=== PATIENT | male | born 1955 | race Caucasian/White ===

== ENCOUNTER → 2016-09-21 | Outpatient (CLI) | payer OTHER ==
[2016-09-21 17:40] LABS: BLOOD UREA NITROGEN 17 mg/dl (7-18); BUN/CREATININE RATIO 13.3 (10-20); CALCIUM 8.2 mg/dl (8.5-10.1); CARBON DIOXIDE 23 mmol/L (21-32); CHLORIDE 108 mmol/L (98-107); GLUCOSE 93 mg/dl (70-99); POTASSIUM 3.7 mmol/L (3.5-5.1); SODIUM 140 mmol/L (136-145)
== END | disposition home or self-care (01) ==
LOC: C.LABPVFM 15:04
PROVIDERS: ATTEND Nurse Practitioner
DX: F07.81 Postconcussional syndrome (principal); I10 Essential (primary) hypertension; F41.9 Anxiety disorder, unspecified

== ENCOUNTER → 2016-12-04 | Outpatient (CLI) | payer OTHER | END | disposition home or self-care (01) | LOC: C.LABPVFM 12:10 | PROVIDERS: ATTEND Nurse Practitioner | DX: E83.51 Hypocalcemia (principal) ==

== ENCOUNTER → 2016-12-07 | Outpatient (CLI) | payer OTHER ==
--- NOTE | 2016-12-07 12:36 | DIAGNOSTIC IMAGING REPORT ---
TWO VIEW CHEST CLINICAL HISTORY: Cough. Influenza. FINDINGS: PA and lateral chest radiographs are compared to study dated 08/20/2012. The cardiomediastinal silhouette is unremarkable. The lungs and pleural spaces are clear. There is no pneumothorax. The bony thorax appears intact. Degenerative change is noted throughout the thoracic spine. IMPRESSION: No active disease in the chest. Electronically signed by: Saleem Rodriguez M.D. 12/07/2016 12:35 PM Dictated Date/Time: 12/07/2016 12:34 PM
== END | disposition home or self-care (01) ==
LOC: C.RAD1850 12:04
PROVIDERS: ATTEND Nurse Practitioner Family
DX: J11.1 Influenza due to unidentified influenza virus with other respiratory manifestations (principal); R05 Cough

== ENCOUNTER → 2017-01-03 | Outpatient (CLI) | payer OTHER ==
--- NOTE | 2017-01-03 07:34 | DIAGNOSTIC IMAGING REPORT ---
ULTRASOUND OF THE THYROID GLAND CLINICAL HISTORY: Thyroid nodule. COMPARISON STUDY: Thyroid ultrasound dated 12/08/2015. TECHNIQUE: Real-time, grayscale, and color flow sonography of the thyroid gland is performed utilizing a high-frequency linear transducer. Images are reviewed in the transverse and longitudinal planes. FINDINGS: Right lobe: The right lobe of the thyroid gland is normal in size and homogeneous in echotexture, measuring 5.2 x 1.3 x 1.5 cm. A 4 mm hypoechoic nodule in the lower pole is unchanged. Left lobe: The left lobe of the thyroid gland is normal in size and homogeneous in echotexture, measuring 4.8 x 1.3 x 2.0 cm. Isthmus: The thyroid isthmus is normal in appearance and measures 0.35 cm in AP diameter. A 6 mm colloid cyst is incidentally noted in the left isthmus. This is unchanged. IMPRESSION: 1. The thyroid gland is normal in size and echotexture. 2. A subcentimeter thyroid nodule and a colloid cyst are unchanged. Electronically signed by: Saleem Rodriguez M.D. 01/03/2017 7:32 AM Dictated Date/Time: 01/03/2017 7:30 AM
== END | disposition home or self-care (01) ==
LOC: C.ULTR 06:15
PROVIDERS: ATTEND Nurse Practitioner
DX: E04.1 Nontoxic single thyroid nodule (principal)

== ENCOUNTER 2017-10-26 18:45 | Emergency (ER) | payer OTHER ==
[~2017-10-26] VITALS: Ht 180.3 cm; Wt 105.6 kg
[2017-10-26 18:50] VITALS: TEMP 37.1; Ht 180.3 cm; Wt 105.6 kg
[2017-10-26] MEDS ORDERED: LIDO/EPINEPHRINE/SOD BICARB 20 ML VIAL INFIL ONE (19:30)
[2017-10-26] MEDS ORDERED: AMOXICILLIN/CLAVULANATE TAB 875 MG TAB PO ONE (19:30)
[2017-10-26] MEDS ORDERED: AMOX875T PO (19:38)
--- NOTE | 2017-10-26 19:41 | DIAGNOSTIC IMAGING REPORT ---
L FOREARM 2 VIEWS ROUTINE CLINICAL HISTORY: 62 years-old Male presenting with LEFT, DOG BITE. TECHNIQUE: Frontal and lateral views of the left forearm were obtained. COMPARISON: None. FINDINGS: Minimal irregularity of the subcutaneous tissue suggested over the radial mid forearm. No acute fracture or malalignment. No osseous erosion or periostitis. Elbow joint and radiocarpal joints intact. Proximal and distal radial ulnar joints intact. Ossicle at the insertion of the triceps tendon suggests chronic degenerative change. Similarly calcification or ossification at the origin of the common flexor tendon at the elbow suggests chronic degenerative change. IMPRESSION: 1. No acute osseous injury. 2. Degenerative changes as above. Electronically signed by: Hany Ruiz M.D. 10/26/2017 7:40 PM Dictated Date/Time: 10/26/2017 7:38 PM
--- NOTE | 2017-10-26 20:11 | EMERGENCY ROOM VISIT NOTE ---
ED Visit Note First contact with patient: 18:55 CHIEF COMPLAINT: Dog bite left forearm HISTORY OF PRESENT ILLNESS: Patient is a [id number] 62-year-old male who presents emergency department for evaluation of a dog bite to the left forearm that he sustained roughly 4 hours ago. 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 He was bitten on the left forearm. He has several bite lowery noted to the dorsal aspect of the left forearm. He cleansed the area and put a bandage over it. The patient more reports a mild, throbbing pain that he rates a 7/10. The bleeding has stopped. Patient's old records confirm that his tetanus is up-to- date in 2016. The dog rfid technician reports that the dog's rabies vaccinations are current, but does not have any confirmatory documentation. The patient's fashion supervisor went back to the home to get more information, and they state that the circulation director's office will be sending them confirmation of the dog's rabies vaccination status tomorrow. REVIEW OF SYSTEMS: Review of systems as per HPI. All other systems reviewed were negative. At least 6 systems reviewed. PMH: Electronic medical records are reviewed and summarized as above/below. See Problem List. SOCIAL HISTORY: Patient lives at home with his significant other. Employed. Non-smoker.. PHYSICAL EXAM: Vital Signs: Reviewed Nurse's notes. CONSTITUTIONAL: Patient is a pleasant, well-appearing 62-year-old male who is awake and alert and in no acute distress. INTEGUMENTARY: Examination of the dorsal aspect of the mid left forearm note several superficial skin avulsions, there is only one wound that is a laceration, measuring 1.5 cm in length that extends into the subcutaneous tissue. There is some surrounding ecchymosis and mild soft tissue swelling. The area is mildly tender to palpation. No active bleeding. No foreign body. MUSCULOSKELETAL: Left elbow and wrist are nontender to palpation , full range of motion of the left upper extremity. Left upper extremity is neurovascularly intact. EMERGENCY DEPARTMENT COURSE: The patient was seen and assessed as above. He was offered medication for discomfort, but declined. X-rays of the forearm were obtained and negative for acute fracture or acute bony abnormality. Wound was repaired as noted below. Patient was given first dose of Augmentin in the emergency department. At the present time, there is only verbal confirmation from the pet rfid technician that the dog's rabies vaccination status is current. Treatment options regarding rabies post exposure prophylaxis were discussed with the patient at length including risks, benefits and alternatives. At this point, the patient has elected to defer rabies prophylaxis pending confirmatory information from the circulation director, which I think is reasonable. The dog is a domestic animal, and behavior was not unprovoked and therefore situation was felt to be low risk. The patient expressed understanding of his options, and would like to wait. He was advised that if the documentation fails to confirm up-to-date rabies status or they are unable to be given any type of documentation of the dog's status then he should return to the emergency department for vaccinations as discussed. He is in agreement with this. The patient was discharged home in good condition. He is cleared to return to full duty at work. I do not suspect compartment syndrome, fracture, foreign body, nerve or tendinous injury. Medication reconciliation: I attest that I have personally reviewed the patient' s current medication list. Blood pressure screening: Patient was found to have a slightly elevated blood pressure due to circumstances. I do not believe that the patient requires hypertension monitoring. PROCEDURE NOTE: Using sterile technique, saline and Betadine cleansing, and 1% lidocaine anesthesia, the laceration was repaired with 2, 5-0 nylon sutures. L FOREARM 2 VIEWS ROUTINE CLINICAL HISTORY: 62 years-old Male presenting with LEFT, DOG BITE. TECHNIQUE: Frontal and lateral views of the left forearm were obtained. COMPARISON: None. FINDINGS: Minimal irregularity of the subcutaneous tissue suggested over the radial mid forearm. No acute fracture or malalignment. No osseous erosion or periostitis. Elbow joint and radiocarpal joints intact. Proximal and distal radial ulnar joints intact. Ossicle at the insertion of the triceps tendon suggests chronic degenerative change. Similarly calcification or ossification at the origin of the common flexor tendon at the elbow suggests chronic degenerative change. IMPRESSION: 1. No acute osseous injury. 2. Degenerative changes as above. Problem List Medical Problems: (1) Closed head injury Status: Resolved (2) Concato's disease Status: Resolved (3) Concussion Status: Resolved (4) Essential (Primary) Hypertension Status: Chronic (5) Scalp laceration Status: Resolved Current/Historical Medications Scheduled Amoxicillin & Pot Clavulanate (Augmentin 875-125 mg), 1 TAB PO BID Allergies Coded Allergies: No Known Allergies (Verified , 11/22/15) Vital Signs Date Time Temp Pulse Resp B/P (MAP) Pulse Ox O2 Delivery O2 Flow Rate FiO2 10/26/17 18:50 37.1 94 18 198/128 94 Room Air Medications Administered Medications (Trade) Dose Ordered Sig/Tracie Route Start Time Stop Time Status Last Admin Dose Admin Amoxicillin/ Clavulanate Potassium (Augmentin Tab) 875 mg ONE ONCE PO 10/26/17 19:30 10/26/17 19:31 DC 10/26/17 19:28 875 MG Lidocaine/ Epinephrine (Buffered Xylocaine/ Epinephrine 1% Inj) 20 ml NOW ONCE INFIL 10/26/17 19:30 10/26/17 19:31 DC 10/26/17 19:28 20 ML Departure Information Impression Primary Impression: Dog bite Additional Impression: Work related injury Prescriptions Amoxicillin & Pot Clavulanate (Augmentin 875-125 mg) 1 Tab Tab 1 TAB PO BID, #14 TAB Prov: Ange Lema PA 10/26/17 Referrals No Doctor, Assigned (PCP) Patient Instructions [facility] Additional Instructions Keep wounds clean and dry. Clean gently with mild soap and water and cover with an antibiotic ointment until healed. Suture removal in 10-12 days. Return sooner for any signs of infection (increasing redness, swelling, drainage). Ice and elevate for swelling and pain. Ibuprofen 600 mg and Tylenol 1000 mg every 6 hrs for pain. Augmentin 875 mg: Take one pill twice daily for 7 days to prevent infection. All antibiotics can cause diarrhea. If this occurs and you feel worse or it does not resolve in 1-2 days follow up with your doctor or return to the Emergency Department as this could be signs of serious underlying problems. Any medication can cause an allergic reaction, stop the pills immediately and return to the ER for rash, hives, breathing difficulties, or swelling. Return to the ED for rabies post exposure prophylaxis series if : 1. The dog's rabies shots are not current 2. You are unable to obtain documentation that the dog's rabies shots are current by Sunday, 10/29. Problem Qualifiers Primary Impression: Dog bite Encounter type: initial encounter Qualified Codes: W54.0XXA - Bitten by dog , initial encounter
[2017-10-26 20:23] VITALS: BP 174/120; PULSE 78; O2SAT 96
== END 2017-10-26 20:31 | disposition home or self-care (01) ==
LOC: C.EDB 18:46 → C.EDD 20:31
DX: S50.872A Other superficial bite of left forearm, initial encounter (principal); W54.0XXA Bitten by dog, initial encounter; Y99.0 Civilian activity done for income or pay; I10 Essential (primary) hypertension

== ENCOUNTER → 2017-11-21 | Outpatient (CLI) | payer OTHER ==
[2017-11-21 13:03] LABS: ALBUMIN 3.8 gm/dl (3.4-5.0); ALT/SGPT 34 U/L (12-78); AST/SGOT 20 U/L (15-37); BLOOD UREA NITROGEN 21 mg/dl (7-18); CALCIUM 8.2 mg/dl (8.5-10.1); CARBON DIOXIDE 26 mmol/L (21-32); CHOLESTEROL 205 mg/dl (0-200); GLUCOSE 99 mg/dl (70-99); POTASSIUM 4.3 mmol/L (3.5-5.1); SODIUM 136 mmol/L (136-145)
[2017-11-21 13:05] LABS: ALKALINE PHOSPHATASE 107 U/L (45-117); LDL CHOLESTEROL CALCULATED 144 mg/dl; TOTAL PROTEIN 7.2 gm/dl (6.4-8.2)
== END | disposition home or self-care (01) ==
LOC: C.LABPVFM 07:21
PROVIDERS: ATTEND Nurse Practitioner Family
DX: I10 Essential (primary) hypertension (principal)